=== PATIENT | female | born 1955 | race Caucasian/White ===

== ENCOUNTER 2023-12-17 07:49 | Emergency (ER) | payer MEDICARE, SELFPAY ==
[2023-12-17] VITALS (10 sets, daily range): BP systolic 111–156; BP diastolic 70–125; PULSE 61–75; RESP 12–24; TEMP 36.6; O2SAT 92–98; BMI 20.2
--- NOTE | 2023-12-17 08:23 | CRLHL7_ITS ---
For Patients: As a result of the Cures Act, medical imaging exams and procedure reports are released immediately into your electronic medical record. You may view this report before your referring provider. If you have questions, please contact your health care provider. Indication: Left wrist injury. Technique: Left wrist 3 views. Comparison: None. Findings/Impression: Bones: Nondisplaced radial styloid fracture of indeterminate age. The fracture could be acute. No other osseous abnormality. 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 Soft tissues: Unremarkable. Dictated by Ty Kat MD @ 12/17/2023 9:20:39 AM (Electronically Signed)
--- NOTE | 2023-12-17 08:23 | CRLHL7_ITS ---
For Patients: As a result of the Century Cures Act, medical imaging exams and procedure reports are released immediately into your electronic medical record. You may view this report before your referring provider. If you have questions, please contact your health care provider. Indication: SYNCOPAL EPISODE W/ FALL Technique: Noncontrast axial CT of the cervical spine with coronal and sagittal reformats are provided. Comparison: No prior studies available for comparison at this institution. Findings: There is grade 1 anterolisthesis at C3-4 and C4-5. Reversal of normal cervical lordotic curvature may be due to muscle spasm or positioning. Severe disc space narrowing at C5-6. Anterior osteophytic spurring at C4-5 and C5-6 and C6-7. The craniocervical junction is unremarkable. Mild calcifications along the transverse ligament raises the possibility of calcium pyrophosphate deposition disease or degenerative changes. Mild cerumen in the right external ear canal. Small calcification in the left thyroid gland and could represent thyroid nodule. Pleural-parenchymal scarring at the lung apices. Sclerotic focus in the left C7 transverse process likely represents incidental bone island. Air-filled subchondral cyst in the C5 vertebral body. C1-2: No spinal canal stenosis C2-3: Moderate facet arthrosis. No significant spinal canal stenosis or neural foraminal narrowing. C3-4: Grade 1 anterolisthesis. Moderate facet arthrosis. Moderate neural foraminal narrowing bilaterally. No significant spinal canal stenosis. C4-5: Moderate left facet arthrosis. Grade 1 anterolisthesis. No significant spinal canal stenosis or neural foraminal narrowing. C5-6: Severe interspace narrowing. Disc osteophyte complex and uncovertebral joint hypertrophy. Mild spinal canal stenosis. Severe left and moderate right neural foraminal narrowing. C6-7: No significant spinal canal stenosis or neural foramen narrowing. C7-T1: No significant spinal canal stenosis or neural foraminal narrowing. Impression : 1. No acute osseous abnormality. 2. Multilevel cervical spondylosis detailed above. Please note that all CT scans at this facility use dose modulation, iterative reconstruction, and/or weight-based dosing when appropriate to reduce radiation dose to as low as reasonably achievable. Dictated by Robe Willson MD @ 12/17/2023 9:16:27 AM (Electronically Signed)
--- NOTE | 2023-12-17 08:23 | CRLHL7_ITS ---
For Patients: As a result of the Century Cures Act, medical imaging exams and procedure reports are released immediately into your electronic medical record. You may view this report before your referring provider. If you have questions, please contact your health care provider. Indication: SYNCOPAL EPISODE W/ FALL Technique: CT of the head without contrast. Coronal and sagittal reformats. Bone and soft tissue windows. Comparison: No prior studies available for comparison at this institution. Findings: No acute intracranial hemorrhage or extra-axial collection. No evidence of acute cortical infarction. No mass effect or midline shift. Normal cerebral volume. The ventricles are normal in size, shape and contour. There is normal pan and white matter differentiation. Partially empty sella. The orbital contents are normal. No calvarial fractures. No lytic or sclerotic osseous lesions within the calvarium or skull base. Scalp and other imaged soft tissue structures are normal. Mastoid air cells are clear. Paranasal sinuses are well aerated. Incidental right parietal scalp subgaleal hematoma measures up to 2.6 cm. Impression: No acute intracranial abnormality. Please note that all CT scans at this facility use dose modulation, iterative reconstruction, and/or weight-based dosing when appropriate to reduce radiation dose to as low as reasonably achievable. Dictated by Robe Willson MD @ 12/17/2023 9:10:48 AM (Electronically Signed)
--- NOTE | 2023-12-17 08:23 | CRLHL7_ITS ---
For Patients: As a result of the Cures Act, medical imaging exams and procedure reports are released immediately into your electronic medical record. You may view this report before your referring provider. If you have questions, please contact your health care provider. Indication: SYNCOPAL EPISODE W/ FALL, JAW PAIN Technique: Helical axial sections were obtained through the facial skeleton, mandible and adjacent structures without intravenous contrast material. Data was reformatted not only in axial but also coronal planes. Comparison: None Findings: No fracture is demonstrated in the facial skeleton or mandible. Mild swelling and small laceration along the mandibular symphysis and the left side. The orbits and their contents are normal in appearance. There is no evidence for penetrating injury to the ocular globes. The lenses are situated in their normally expected anterior locations. No radiodense or metallic foreign body is demonstrated. Incidental 1.7 cm retention cyst in the left maxillary sinus. The nasal septum is deviated to the left Mild cerumen in the right external auditory canal. The visualized portions of the brain are normal in appearance. Impression: 1. No facial bone fracture. 2. Mild swelling and small laceration along the mandibular symphysis and the left side. Please note that all CT scans at this facility use dose modulation, iterative reconstruction, and/or weight-based dosing when appropriate to reduce radiation dose to as low as reasonably achievable. Dictated by Robe Willson MD @ 12/17/2023 9:20:52 AM (Electronically Signed)
[2023-12-17 08:46] LABS: Basophils Absolute Auto 0.04 K/uL (0.00-0.30); Basophils Percent Auto 0.6 % (0.0-3.0); Eosinophils Absolute Auto 0.06 K/uL (0.00-0.50); Eosinophils Percent Auto 0.9 % (0.0-7.0); Hematocrit 43.2 % (33.0-51.0); Hemoglobin* 14.6 gm/dL (12.0-16.0); Immature Granulocytes Abs Auto 0.01 K/uL (0.00-0.30); Immature Granulocytes Pct Auto 0.2 %; Mean Corpuscular HGB Conc 34 gm/dL (32-36); Mean Corpuscular Hemoglobin 31 pg (26-34); Mean Corpuscular Volume 92 fL (80-100); Monocytes Percent Auto 11.1 % (0.0-11.0); Neutrophils Percent Auto 74.2 % (42.0-72.0); Platelet Count* 146 K/uL (140-440); White Blood Count* 6.38 K/uL (4.50-11.00)
[2023-12-17 08:55] LABS: Slide Review Reflex No
[2023-12-17 09:00] LABS: Albumin* 5.1 g/dL (3.3-5.0); Chloride* 105 mmol/L (96-114); Sodium* 138 mmol/L (135-149)
[2023-12-17 09:01] LABS: Potassium* 4.4 mmol/L (3.6-5.1)
[2023-12-17 09:03] LABS: Anion Gap 6 mEq/L (7-15); Aspartate Amino Transferase* 132 U/L (12-35); Bilirubin Total* 0.6 mg/dL (0.1-1.5); Blood Urea Nitrogen* 17 mg/dL (7-30); Carbon Dioxide* 27 mmol/L (20-32); Creatinine* 0.6 mg/dL (0.5-1.5); Est. Creatinine Clearance* 47.52; Estimated Glomerular Filt Rate 97 ml/min; Total Protein* 7.7 g/dL (6.0-8.3)
[2023-12-17 09:04] LABS: Alanine Aminotransferase* 117 U/L (4-35); Alkaline Phosphatase* 74 U/L (40-150); Calcium* 9.3 mg/dL (8.4-10.6); Glucose* 113 mg/dL (60-115)
[2023-12-17 09:26] LABS: Appearance Urine Clear (Clear); Bilirubin Urine Negative (Negative); Blood Urine Negative (Negative); Color Urine Yellow (Yellow); Glucose Urine Negative (Negative); Ketones Urine Negative (Negative); Leukocyte Esterase Urine Negative (Negative); Nitrite Urine Negative (Negative); Protein Urine Negative (Negative); Specific Gravity Urine 1.015 (1.000-1.030); Urobilinogen Urine 0.2 (0.2-1.0)
[2023-12-17] MEDS: LIDOCAINE/EPINEP/TETRACAINE 3 ML GEL..ML. TOPICAL (09:29)
[2023-12-17 09:35] LABS: RBC Urine 0-2 (0-2); Squamous Epithelial Cell Urine Few (None-Few); WBC Urine 0-2 (0-5)
[2023-12-17 10:04] LABS: PCR FLU A Negative PCR FLU A (Negative); PCR FLU B Negative PCR FLU B (Negative); PCR RSV Negative PCR RSV (Negative); SARS PCR* Negative SARS-CoV-2 (Negative)
--- NOTE | 2023-12-17 11:08 | ED_ITS ---
HPI - General Adult General Time Seen by Provider: 11:08 Date Seen: 12/17/23 Chief complaint: Laceration/Wound Stated complaint: chin lac, fall Time Seen by Provider: 12/17/23 08:09 Source: patient Mode of arrival: ambulatory Limitations: no limitations History of Present Illness HPI narrative: Marian is a very pleasant 68-year-old female with his past history of leukemia who comes to the emergency room by private vehicle after having a syncopal episode at home. Patient has sustained a left lower chin laceration and states that her left wrist hurts. Patient notes that she remembers waking up early this morning with significant right lower quadrant pain and feeling nauseated. The next thing she remembers is waking up on the floor of her bathroom with a bloody chin. She does not recall getting out of bed or going into the bathroom. She states that her feet were pointed toward the toilet and there head was pointed toward the door. She notes that her chin felt wet and she found that she was bleeding. She notes that she got up was trying to sit on the toilet but was very dizzy-she denies vertigo-she was also very nauseated. That the dizziness and nausea persisted while she was attempting to contact neighbors and family. Her 1st text to her daughter was at 0556 hours. She does not know what time she awoke with the right lower quadrant pain. Surprisingly she has no belly pain nausea or dizziness as I am talking to her. She is complaining of left wrist pain, left rivera pain where her laceration is an discomfort in her right TMJ. She notes neck pain on the left with movement. Otherwise no pain at rest. She has a past history of kidney stones but states that this does not feel like a kidney stone that she has experienced in the past. She has been well except for a mild cough over the last 3 days but no cough today. She denies chest pain or shortness of breath. She did not have a bowel movement or diarrhea during this morning's event. She has not had problems with her heart in the past. Unfortunately there are no witnesses to this event. She did not have loss of bowel or bladder control. She is not on blood thinners. She is currently healthy. Related Data Home Medications ?Medication ?Instructions ?Recorded ?Confirmed No Known Home Medications 12/17/23 12/17/23 Allergies Allergy/AdvReac Type Severity Reaction Status Date / Time ampicillin Allergy Mild hives Verified 12/17/23 12:06 codeine Allergy Mild Verified 12/17/23 12:06 cephalexin Allergy Unknown Verified 12/17/23 12:06 erthyromycin Allergy Mild stomach Uncoded 12/17/23 12:06 pain Review of Systems Status of ROS: Reports: 10 or more systems reviewed and unremarkable except as noted in History and below Const: Denies: fever or chills Eyes: Denies: change in vision, blurry vision or seeing flashes ENMT: Reports: neck pain (Left side with movement); Denies: throat pain or vertigo Musculo: Reports: neck pain (Left side with movement) and other (Left wrist pain); Denies: extremity swelling Integ/Breast: Denies: rash Neuro: Reports: dizziness and other (No loss of bowel or bladder control); Denies: headache, numbness in extremities, vertigo, confusion, behavioral changes or seizure-like activity Endo: Denies: excessive urination PFSH [facility] Medical History Leukemia, acute ?C95.00 - Acute leukemia of unspecified cell type not having achieved remission (ICD-10) Social History Smoking Status: Never smoker Do you use any of these nicotine containing products: None How often do you have a drink containing alcohol: never AUDIT-C Alcohol total score: 0 Non-prescribed substance use: denies use Exam Narrative: Exam Narrative: Alert and oriented. Talkative and normal mentation. EOM is full. Head is atraumatic normocephalic. No midline cervical tenderness. No paracervical tenderness-pain with rotation of the neck on the left paracervical musculature. There is a laceration on the left lower chin and lateral jaw line measuring approximately 2 point 3 cm. It is compromising dermis epidermis and subcutaneous tissue. Wound is slowly oozing blood at this time. I do not note any underlying structures or any evidence of contamination or foreign bodies. This wound was cleansed and let was applied. Heart with a regular rate and rhythm. Lungs are clear bilaterally. Abdomen soft nontender. No peritoneal signs, no evidence of distension, bowel sounds are present. No CVA tenderness with percussion. Moving all extremities. No focal neurological deficits. Const: Vital Signs, click to edit/add: Vital Signs - 24 hr 12/17/23 07:53 12/17/23 09:30 12/17/23 10:00 Temperature 97.9 F Pulse Rate [Pulse Oximeter] 61 68 66 Respiratory Rate 18 20 12 Blood Pressure [Ri ght Upper Arm] 111/72 135/77 137/88 Pulse Oximetry 97 98 97 Oxygen Delivery Me thod Room Air Room Air Room Air 12/17/23 10:30 12/17/23 11:00 12/17/23 11:30 Temperature Pulse Rate [Pulse Oximeter] 68 65 70 Respiratory Rate 12 19 24 Blood Pressure [Ri ght Upper Arm] 137/91 H 121/76 136/78 Pulse Oximetry 97 92 98 Oxygen Delivery Me thod Room Air Room Air Room Air 12/17/23 12:00 12/17/23 12:30 12/17/23 13:30 Temperature Pulse Rate [Pulse Oximeter] 75 70 68 Respiratory Rate 17 19 16 Blood Pressure [Ri ght Upper Arm] 147/88 H 134/90 H 135/81 Pulse Oximetry 98 97 98 Oxygen Delivery Me thod Room Air Room Air Room Air 12/17/23 13:30 12/17/23 14:15 Temperature Pulse Rate [Pulse Oximeter] 72 69 Respiratory Rate 13 19 Blood Pressure [Ri ght Upper Arm] 156/125 H 125/70 Pulse Oximetry 97 97 Oxygen Delivery Me thod Room Air Room Air Documenting provider has reviewed patient's vital signs: yes Course Course ED Course: Differential diagnosis is broad in this patient with true syncope. Subarachnoid hemorrhage, vasovagal reaction from pain, hypotension, ureteral colic/nephrolithiasis, COVID, urinary tract infection, seizure. At this time will place IV. Patient will need to undergo CT of the head, cervical spine, face including mandible. Will also obtain x-ray of the left wrist. EKG, troponin, CBC, comprehensive panel, urinalysis pending at this time. Patient has a normal white count and hemoglobin. Reevaluation(s) Reevaluation #1: Liver function tests are elevated AST 132 an ALT 117. Patient has no abdominal discomfort at this time. Initial troponin is negative. A 2nd will be ordered in a few hours. Fortunately no evidence of fractures of the jaw. Patient notes that her jaws actually feeling much better at this point. Patient does have a fracture of the radial styloid. A thumb spica splint is placed for mobilization. Vital Signs Vital signs: Initial Vital Signs Temperature 97.9 F 12/17/23 07:53 Temperature Source Temporal Artery Scan 12/17/23 07:53 Pulse Rate 61 12/17/23 07:53 Respiratory Rate 18 12/17/23 07:53 Blood Pressure 111/72 12/17/23 07:53 Blood Pressure Mean 85 12/17/23 07:53 Blood Pressure Position Sitting 12/17/23 07:53 Pulse Oximetry 97 12/17/23 07:53 Oxygen Delivery Method Room Air 12/17/23 07:53 Vital Signs Temperature 97.9 F 12/17/23 07:53 Pulse Rate 61 12/17/23 07:53 Respiratory Rate 18 12/17/23 07:53 Blood Pressure 111/72 12/17/23 07:53 Pulse Oximetry 97 12/17/23 07:53 Oxygen Delivery Method Room Air 12/17/23 07:53 Temperature 97.9 F 12/17/23 07:53 Pulse Rate 69 12/17/23 14:15 Respiratory Rate 19 12/17/23 14:15 Blood Pressure 125/70 12/17/23 14:15 Pulse Oximetry 97 12/17/23 14:15 Oxygen Delivery Method Room Air 12/17/23 14:15 Medications Administered Medications: Discontinued Medications Generic Name Dose Route Start Last Admin Trade Name Freq PRN Reason Stop Dose Admin Sodium Chloride 500 mls @ 500 mls/hr 12/17/23 11:54 12/17/23 12:37 0.9 % Sodium Chloride 500 Ml IV 12/17/23 12:53 500 mls/hr .Q1H ONE Administration Lidocaine/Epinephrine/Tetracaine 3 ml 12/17/23 08:26 12/17/23 09:29 Lidocaine/Epinep/Tetracaine 3 Ml Gel..Ml. TOPICAL 12/17/23 08:27 3 ml ONCE ONE Administration Medical Decision Making MDM Narrative Medical decision making narrative: 1. Syncopal episode-during patient's stay in the ED she had no evidence of arrhythmia, significant bradycardia or elevated troponin. EKG reassuring with no ST or T-wave changes. 2 sets of cardiac enzymes were negative. I do suggest overnight observation but patient is requesting that we put her in as an inpatient. Unfortunately she does not meet criteria for inpatient and would go to the floor as an observation patient. With this she has decided to go home. I do speak of the risks of an unusual arrhythmia and I would like her to stay with somebody tonight or have somebody stay with her. I would recommend good hydration although we have no evidence that dehydration was implicated in today's events. I think this is most likely a vasovagal reaction from severe abdominal pain. There was no evidence of a bowel movement or diarrhea or recent illness to explain this. Laboratory values such as white count and hemoglobin were normal. Kidney function also within normal limits and urinalysis with no evidence of UTI. COVID was negative. At this time patient is declining admission and will be going home. Chest abdomen and pelvic CT does not show any evidence of aortic dissection, appendicitis, fluid in the pelvis. Does show mild constipation. 2. Left chin laceration-total of 11 stitches, 2 deep stitches and 9 on the surface. Patient was very worried about scarring. To the best of my ability IA repaired this to limit any stroke are ring. However, I did tell her there would be a scar. In order to limit scar appearance I would recommend sunscreen or wearing a hat and avoiding direct sunlight for the next year on the chin. If she really does not like the out calm she may need to contact plastic surgery but I did tell her that there would be some remodeling over the next 12 months as well. Suture removal in 5 days time. 3. Left wrist fracture-radial styloid fracture. Patient was placed in thumb spica splint. She agrees that it feels better. Recommend follow-up with orthopedics in the next week for a Velcro splint versus cast. 4. History of leukemia-white count within normal limits 5. . Pulmonary nodule-this has increased in size from 4 mm to 8 mm and it is suggested that patient follow-up for evaluation. Patient is provided a copy of her CT to bring to the doctor. 6. Elevated LFTs-of unknown etiology. Recommend follow-up with primary MD for recheck. 7. Disposition-home at this time. Family member will be staying with her tonight. Return to the emergency room for syncope, vomiting, chest pain and as needed. Medical Records Medical records reviewed: Yes I reviewed the patient's medical records Medical records narrative: Records reviewed from our previous medical record [employer] system Lab Data Lab results reviewed: Yes I reviewed the patient's lab results Labs: Lab Results 12/17/23 12/17/23 12/17/23 Range/Units 08:40 12:37 12:51 WBC 6.38 (4.50-11.00) K/uL RBC 4.70 (4.00-5.20) m/uL Hgb 14.6 (12.0-16.0) gm/dL Hct 43.2 (33.0-51.0) % MCV 92 (80-100) fL MCH 31 (26-34) pg MCHC 34 (32-36) gm/dL RDW Coeff of [place] 13.0 (11.5-15.5) % Plt Count 146 (140-440) K/uL Neut % (Auto) 74.2 H (42.0-72.0) % Lymph % (Auto) 13.0 L (20-44) % [place] % (Auto) 11.1 H (0.0-11.0) % Eos % (Auto) 0.9 (0.0-7.0) % Baso % (Auto) 0.6 (0.0-3.0) % Neut # (Auto) 4.70 (1.7-7.0) K/uL Lymph # (Auto) 0.80 L (0.90-2.90) K/uL [place] # (Auto) 0.70 (0.00-0.90) K/UL Eos # (Auto) 0.06 (0.00-0.50) K/uL Baso # (Auto) 0.04 (0.00-0.30) K/uL Abs Immat Gran (auto) 0.01 (0.00-0.30) K/uL Imm/Tot Granulo (auto) 0.2 % Sodium 138 (135-149) mmol/L Potassium 4.4 (3.6-5.1) mmol/L Chloride 105 (96-114) mmol/L Carbon Dioxide 27 (20-32) mmol/L Anion Gap 6 L (7-15) mEq/L BUN 17 (7-30) mg/dL Creatinine 0.6 (0.5-1.5) mg/dL Estimated Creat Clear 47.52 Estimated GFR 97 ml/min Glucose 113 (60-115) mg/dL Calcium 9.3 (8.4-10.6) mg/dL Total Bilirubin 0.6 (0.1-1.5) mg/dL AST 132 H (12-35) U/L ALT 117 H (4-35) U/L Alkaline Phosphatase 74 (40-150) U/L Total Protein 7.7 (6.0-8.3) g/dL Albumin 5.1 H (3.3-5.0) g/dL Urine Color (Yellow) Urine Appearance (Clear) Urine pH (5.0-8.5) Ur Specific [place] (1.000-1.030) Urine Protein (Negative) Urine Glucose (UA) (Negative) Urine Ketones (Negative) Urine Blood (Negative) Urine Nitrite (Negative) Urine Bilirubin (Negative) Urine Urobilinogen (0.2-1.0) Ur Leukocyte Esterase (Negative) Urine RBC (0-2) Urine WBC (0-5) Ur Squamous Epith Cells (None-Few) Urine Bacteria (None) SARS-CoV-2 (PCR) (Negative) Monoscreen Negative (Negative) Influenza Type A (PCR) (Negative) Influenza Type B (PCR) (Negative) RSV (PCR) (Negative) Lab Acknowledgement Test Added POC Troponin I 0.00 L 0.01 (0.01-0.04) ng/ml 12/17/23 Range/Units Unknown WBC (4.50-11.00) K/uL RBC (4.00-5.20) m/uL Hgb (12.0-16.0) gm/dL Hct (33.0-51.0) % MCV (80-100) fL MCH (26-34) pg MCHC (32-36) gm/dL RDW Coeff of [place] (11.5-15.5) % Plt Count (140-440) K/uL Neut % (Auto) (42.0-72.0) % Lymph % (Auto) (20-44) % [place] % (Auto) (0.0-11.0) % Eos % (Auto) (0.0-7.0) % Baso % (Auto) (0.0-3.0) % Neut # (Auto) (1.7-7.0) K/uL Lymph # (Auto) (0.90-2.90) K/uL [place] # (Auto) (0.00-0.90) K/UL Eos # (Auto) (0.00-0.50) K/uL Baso # (Auto) (0.00-0.30) K/uL Abs Immat Gran (auto) (0.00-0.30) K/uL Imm/Tot Granulo (auto) % Sodium (135-149) mmol/L Potassium (3.6-5.1) mmol/L Chloride (96-114) mmol/L Carbon Dioxide (20-32) mmol/L Anion Gap (7-15) mEq/L BUN (7-30) mg/dL Creatinine (0.5-1.5) mg/dL Estimated Creat Clear Estimated GFR ml/min Glucose (60-115) mg/dL Calcium (8.4-10.6) mg/dL Total Bilirubin (0.1-1.5) mg/dL AST (12-35) U/L ALT (4-35) U/L Alkaline Phosphatase (40-150) U/L Total Protein (6.0-8.3) g/dL Albumin (3.3-5.0) g/dL Urine Color Yellow (Yellow) Urine Appearance Clear (Clear) Urine pH 6.0 (5.0-8.5) Ur Specific [place] 1.015 (1.000-1.030) Urine Protein Negative (Negative) Urine Glucose (UA) Negative (Negative) Urine Ketones Negative (Negative) Urine Blood Negative (Negative) Urine Nitrite Negative (Negative) Urine Bilirubin Negative (Negative) Urine Urobilinogen 0.2 (0.2-1.0) Ur Leukocyte Esterase Negative (Negative) Urine RBC 0-2 (0-2) Urine WBC 0-2 (0-5) Ur Squamous Epith Cells Few (None-Few) Urine Bacteria None (None) SARS-CoV-2 (PCR) Negative SARS-CoV-2 (Negative) Monoscreen (Negative) Influenza Type A (PCR) Negative PCR FLU A (Negative) Influenza Type B (PCR) Negative PCR FLU B (Negative) RSV (PCR) Negative PCR RSV (Negative) Lab Acknowledgement POC Troponin I (0.01-0.04) ng/ml Imaging Data CT Chest/Ab/Pelvis: Attestation: I have reviewed the pertinent imaging results. Radiologist's impression: Lungs and pleura: Subsolid nodule anterior right upper lobe series 3, image 26 measures 8 mm, previously measuring 4 mm. Solid pleural-based nodule left lower lobe series 3, image 59 measures 8 mm, unchanged. No other nodules or infiltrates. No effusions, thickening, or pneumothorax. Heart and vasculature: Stable cardiomegaly. Small pericardial effusion. Great vessels normal in caliber. Lymph node/mediastinum: No mediastinal, hilar, or axillary adenopathy. Chest wall: Normal. Bones: No suspicious bone lesions. ABDOMEN AND PELVIS: Liver: Small cystic lesions appear benign and unchanged. Otherwise unremarkable liver. Gallbladder and bile ducts: Unremarkable. Pancreas: Unremarkable. Spleen: Normal in caliber. No masses. Adrenal glands: Unremarkable. No masses. Kidneys: Normal in caliber. No suspicious masses. GI tract: Mild constipation pattern in the colon. Vasculature: Unremarkable. Mesenteric arteries are patent. Lymph nodes: No lymphadenopathy. Omentum/peritoneum/retroperitoneum/abdominal wall: No masses or infiltration. No free air or significant free fluid. Pelvic organs: Unremarkable. Bones: No suspicious bone lesions. IMPRESSION: 1. Indeterminate subsolid pulmonary nodule in the right upper lobe measuring 8 mm, previously measuring 4 mm on the prior study from 4 years ago. A slow growing neoplasm is possible. 2. Stable cardiomegaly. Small pericardial effusion. 3. Mild constipation pattern. 4. No other significant abnormality in the abdomen or pelvis. No other finding to explain abnormal liver function tests. CT scan - head: Attestation: I have reviewed the pertinent imaging results. Cervical spine CT: Attestation: I have reviewed the pertinent imaging results. Facial CT: Attestation: I have reviewed the pertinent imaging results. Left wrist x-ray: Attestation: I have reviewed the pertinent imaging results. ECG Data Attestation: I personally reviewed and interpreted this ECG as follows: Interpretation: EKG by my read shows sinus rhythm at a rate of 66. I do not note any acute ST or T-wave changes. Normal QT and MS intervals. Discharge Plan Discharge Clinical Impression: Laceration, Elevated liver function tests, Lung nodule Syncope Qualifiers: Syncope type: unspecified Qualified Code(s): R55 - Syncope and collapse Patient Disposition: Home, Self-Care Condition: Improved Instructions: Laceration (DC), Syncope (ED), Syncope (DC) Additional Instructions: 1. Left wrist [id number] with orthopedics for evaluation and possible cast placement. The phone number for appointment is [phone] 2. I would like someone to stay with you tonight or have you stay with somebody tonight. 3. Stay well hydrated although I do not note that dehydration played a role in the events of this morning. 4. Your heart tests are negative for heart attack and you have tested negative for COVID. Your hemoglobin is normal and your white count is normal as well. Your kidney function is within normal limits. 5. You have an elevation of your liver function tests. You will need to have these retested at your primary clinic sometime in the next week. There was no abnormality of your liver or gallbladder on the CT 6. Your CT did not show any abnormalities in the abdomen. It did show a nodule in the lung which will need follow-up as it has grown over the past 4 years. A copy of your CT will be provided to you to take to your doctor. I would also like you to follow-up for a repeat ultrasound of the heart. 7. Recommend removal of the external stitches of the laceration in 5 days time. This can be done at your clinic or in Urgent Care. Monitor for signs and symptoms of infection which include increasing redness, fever chills and seek medical attention should you notice this. A thin layer of bacitracin may be applied twice daily as this wound heals. Long-term care of this wound will need protection from the sun with a hat or sunscreen. Prescriptions: No Action No Known Home Medications Follow Up/Referrals: Provider,Not a Local [Primary Care Provider] - Stand Alone Forms: [facility] Info Instructions Procedures Laceration Laceration 1: Pre procedure diagnosis: Left chin laceration Post procedure diagnosis: Left chin laceration repair Name of person performing procedure: Connie Schuler Site: face Side (If applicable): left Size (cm): 2.3 Description: linear Local Anesthetic: lidocaine 1%, with epi and other anesthetic (let) Amount of anesthesia used (mL): 1.75 Pre-repair: wound explored and deep structures intact Skin layer closed with: nylon Size (cm): 6-0 Number of sutures: 9 Technique: simple, interrupted Subcutaneous layer closed with: Vicryl Size: 5-0 Number of sutures: 2 Technique: simple, interrupted Conclusion: patient tolerated procedure
--- NOTE | 2023-12-17 11:53 | CRLHL7_ITS ---
For Patients: As a result of the Century Cures Act, medical imaging exams and procedure reports are released immediately into your electronic medical record. You may view this report before your referring provider. If you have questions, please contact your health care provider. INDICATION: Elevated liver function tests. Syncope. TECHNIQUE: CT chest, abdomen and pelvis acquired with 62 cc Isovue 370 IV contrast. COMPARISON: CT chest August 29, 2019. CT abdomen pelvis March 28, 2016. FINDINGS: CHEST Lungs and pleura: Subsolid nodule anterior right upper lobe series 3, image 26 measures 8 mm, previously measuring 4 mm. Solid pleural-based nodule left lower lobe series 3, image 59 measures 8 mm, unchanged. No other nodules or infiltrates. No effusions, thickening, or pneumothorax. Heart and vasculature: Stable cardiomegaly. Small pericardial effusion. Great vessels normal in caliber. Lymph node/mediastinum: No mediastinal, hilar, or axillary adenopathy. Chest wall: Normal. Bones: No suspicious bone lesions. ABDOMEN AND PELVIS: Liver: Small cystic lesions appear benign and unchanged. Otherwise unremarkable liver. Gallbladder and bile ducts: Unremarkable. Pancreas: Unremarkable. Spleen: Normal in caliber. No masses. Adrenal glands: Unremarkable. No masses. Kidneys: Normal in caliber. No suspicious masses. GI tract: Mild constipation pattern in the colon. Vasculature: Unremarkable. Mesenteric arteries are patent. Lymph nodes: No lymphadenopathy. Omentum/peritoneum/retroperitoneum/abdominal wall: No masses or infiltration. No free air or significant free fluid. Pelvic organs: Unremarkable. Bones: No suspicious bone lesions. IMPRESSION: 1. Indeterminate subsolid pulmonary nodule in the right upper lobe measuring 8 mm, previously measuring 4 mm on the prior study from 4 years ago. A slow growing neoplasm is possible. 2. Stable cardiomegaly. Small pericardial effusion. 3. Mild constipation pattern. 4. No other significant abnormality in the abdomen or pelvis. No other finding to explain abnormal liver function tests. Please note that all CT scans at this facility use dose modulation, iterative reconstruction, and/or weight-based dosing when appropriate to reduce radiation dose to as low as reasonably achievable. Dictated by Ty Kat MD @ 12/17/2023 1:48:55 PM (Electronically Signed)
[2023-12-17] MEDS: 0.9 % SODIUM CHLORIDE 500 ML 500 ML IV (12:37)
[2023-12-17 12:42] LABS: Troponin, Point-of-Care* 0.01 ng/ml (0.01-0.04)
[2023-12-17 13:07] LABS: Mono Screen* Negative (Negative)
== END 2023-12-17 14:36 | disposition home or self-care (01) ==
PROVIDERS: Emergency Provider Family Medicine
DX: S01.81XA Laceration without foreign body of other part of head, initial encounter (principal); S52.515A Nondisplaced fracture of left radial styloid process, initial encounter for closed fracture; W18.30XA Fall on same level, unspecified, initial encounter; R55 Syncope and collapse; R94.5 Abnormal results of liver function studies; R91.8 Other nonspecific abnormal finding of lung field
CPT/HCPCS: 29125; 36415; 70450; 70486; 71260; 72125; 73110; 74177; 80053; 81001; 84484; 85025; 86308; 87631; 93005; 99284; 99285; J7030; Q9967

== ENCOUNTER 2024-02-02 15:30 | Outpatient (RCR) | payer MEDICARE, SELFPAY ==
--- NOTE | 2024-01-22 13:11 | OT.OPOE ---
OT Outpatient Ortho Eval OT Outpatient Ortho Eval* Start: 01/19/24 20:17 Freq: Status: Active Protocol: Document 01/22/24 07:20 AMB (Rec: 01/21/24 21:38 AMB Desktop) E-signed By Sarah Smith, OTR/L, CLT, SELF PROPELLED [employer] OPERATOR OT OP Ortho Eval Details Complexity Complexity Low Insurance Information Insurance Information Medicare B Insurance Information Comments MC cert Due 04/21/24 Outpatient History/Precautions Current Condition/Medical Diagnosis Referring Provider Javier Almodovar PA-c Medical Diagnoses S52.572A LUE DR Sarahy closed Treatment Diagnosis R53.1 Weakness LUE M25.632 Stiffness in LUE wrist Date of Onset 12/17/23 Other Precautions Pt was seen in ortho on 01/18 at that time she was advised to wear brace for the next 3-4 weeks with activities, next 1 -2 weeks for sleeping, but come out for gentle wrist motion, eating, bathing, and sedentary activities. Also advised to avoid heavy lifting with the left arm/wrist. 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 Medical/Functional History Medical History Reviewed Yes Prior Level of Function/Mobility Full Pain-free use of LUE Ortho Subjective Subjective Subjective Pt had a fall in her home early on 12/17/23. 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 She was seen in ER and received sutures to her chin and placed in a thumb spica splint, she was referred to ortho and was seen on 12/20 and was casted, this became uncomfortable, and it was changed on 12/22/23. She is following up with her PCP for the syncopal episode. They have so far found a nodule in her lung, but other than that they have not figured out what caused the syncopal episode. Pt is undergoing extensive testing with her PCP . Cast was removed on 01/18, pt referred to OT for eval and treat. Pt sates she really banged her hand hard on a chair last night, was quite painful but better today. Pt states aguirre she had her cast removed, she was in terrible pain, this has really settled down, currently denies any pain, has occasional pain with certain activities. Pt has concerns about the cost of therapy as she has to pay a $ 35 co-pay, she would like to work mostly on her own. Pain Assessment Pain Pain No Pain Comments Pt reports pain level of a 0 but does have up to 4/10 with some activities. Goniometric Comments Goniometric Comments Goniometric Comments 01/22/24 AROM and strength of BUE is WFL throughout with the exception of her LUE forearm, wrist and hand, which is as follows: Forearm: Pro/Sup: 75/85 Wrist: Flex/Ext: 35/ UD/RD: 03/12 Hand: Comp Fist: Full Opposition: Base of SF Too Early for strength testing of forearm, wrist and hand. OT Objective Data Hand Hand Dominance Right Observations/Posture/Limb Appearance Objective Observations 01/22/24 Pt has mild, expected swelling in her wrist and hand , no bruising or discoloration . OT Problems Problems Problems Decreased Strength,Decreased Range of Motion,Pain,Lifting, Gripping,Pinching Other Problems Opening Containers,Dressing, Computer,Fasteners Patient Potential Good Assessment Assessment Assessment Pt presents to OT with expected pain, swelling, weakness, and limited AROM in the LUE hand, wrist, and forearm. These deficits impair pt's ability to use her LUE for ADLs and IADLs. Pt has difficulty with cooking, cleaning, laundry, personal cares and leisure activities. Pt will benefit from skilled OT intervention to address limitations and restore full, pain-free use of LUE. Occupational Therapy Treatment Plan - OP Potential Rehabilitation Potential Good Set Goals Goals Set with Patient Yes Goals Goals 1. Pt will be independent and compliant with HEP in order to resume full, pain-free use of the involved UE. 3 weeks 2. Pt will demonstrate full, pain-free AROM of the involved UE in order to improve ability to grasp and hold. 6 weeks 3. Pt will demonstrate pain- free stone layout marker and pinch strength comparable to the uninvolved side in order to improve functional grasp, hold, reach, and lifting ability needed to complete self-care, leisure tasks, and work activities. 8 weeks. Treatment Plan Treatment Plan Evaluation,Edema Control, Manual Therapy,Splinting, Therapeutic Exercise, Therapeutic Activities,Self Care/Home Management,Education Expected Frequency 1-2x Week Expected Duration 8-10 Weeks Home Program Home Program Home Program Initiated Home Program Specifics Pt was provided training and practice in HEP for non- resisted mm pumps to reduce swelling and AROM for LUE fingers, wrist, and forearm. Following demo, pt is able to complete exs with minimal cues . Pt was provided written instructions for use at home as well. Certification Certification Statement I Certify That: Therapy Services Provided, Therapy Plan Established, Therapy Plan Reviewed Certification Information Clinic ID # [id number] Initial Certification Date 01/22/24 Recertification Due Date 04/21/24 Provider Signature Required Yes Provider Signature Shows Agreement With POC & Medical Necessity Physician NPI Number Write NPI# Here Physician Comment/Change Comment or Changes Physician Signature & Date Requested Please Sign/Date Here
== END 2024-06-01 23:59 | disposition home or self-care (01) ==
PROVIDERS: PCP Surgery; Visit Provider Physician Assistant Surgical
DX: S52.572A Other intraarticular fracture of lower end of left radius, initial encounter for closed fracture (principal); R53.1 Weakness; M25.632 Stiffness of left wrist, not elsewhere classified; Z51.89 Encounter for other specified aftercare
CPT/HCPCS: 97110; 97140; 97165; X5282